=== PATIENT | female | born 1965 | race Caucasian/White ===

== ENCOUNTER → 2020-11-29 | Outpatient (CLI) | payer OTHER | LOC: WCC 08:30 | DX: S41.102A Unspecified open wound of left upper arm, initial encounter (principal); S41.101A Unspecified open wound of right upper arm, initial encounter; S01.402A Unspecified open wound of left cheek and temporomandibular area, initial encounter; L29.9 Pruritus, unspecified; I10 Essential (primary) hypertension; F42.4 Excoriation (skin-picking) disorder; Z72.0 Tobacco use; X58.XXXA Exposure to other specified factors, initial encounter | CPT/HCPCS: G0463 ==

== ENCOUNTER → 2020-12-15 | Outpatient (CLI) | payer OTHER | LOC: WCC 11:30 | DX: S41.101D Unspecified open wound of right upper arm, subsequent encounter (principal); S41.102D Unspecified open wound of left upper arm, subsequent encounter; L29.9 Pruritus, unspecified; I10 Essential (primary) hypertension; F42.4 Excoriation (skin-picking) disorder; Z72.0 Tobacco use | CPT/HCPCS: G0463 ==

== ENCOUNTER → 2020-12-22 | Outpatient (CLI) | payer OTHER | LOC: WCC 09:15 | DX: S41.102D Unspecified open wound of left upper arm, subsequent encounter (principal); L29.9 Pruritus, unspecified; F42.4 Excoriation (skin-picking) disorder; I10 Essential (primary) hypertension; Z72.0 Tobacco use | CPT/HCPCS: G0463 ==

== ENCOUNTER → 2021-01-17 | Outpatient (CLI) | payer OTHER | LOC: WCC 08:26 | DX: S41.1 Open wound of upper arm (principal); L29.9 Pruritus, unspecified; Z72.0 Tobacco use; I10 Essential (primary) hypertension; F42.4 Excoriation (skin-picking) disorder | CPT/HCPCS: G0463 ==